=== PATIENT | female | born 1990 | race Caucasian/White ===

== ENCOUNTER 2021-04-03 07:18 | Inpatient (IN) | payer BC ==
[2021-04-03] MEDS ORDERED: Sodium Chloride 0.9% 10 ML Syringe FLUSH PRN (08:36)
[2021-04-03] MEDS ORDERED: Sodium Chloride 0.9% 2.5 ML Syringe FLUSH PRN (08:36)
[2021-04-03] MEDS ORDERED: Sodium Chloride 0.9% 10 ML SDV IV PRN (08:36)
[2021-04-03] MEDS ORDERED: Oxytocin/0.9 % Sodium Chloride 30 UNIT/500 ML BAG IV SCH (08:45)
[2021-04-03] MEDS: Lactated Ringers 1,000 ML IV SCH ×3 (08:48→18:10)
[2021-04-03] MEDS ORDERED: Morphine PF 10 MG/10 ML SDV ONE (11:45)
[2021-04-03] MEDS ORDERED: ceFAZolin 1 GM in Premix Bag 1 BAG IV ONE (11:45)
[2021-04-03] MEDS ORDERED: fentaNYL 100 MCG/2 ML SDV EPIDUR ONE (11:45)
[2021-04-03] MEDS ORDERED: Oxytocin 10 Units/1 ML SDV IM ONE (12:14)
[2021-04-03] MEDS ORDERED: Ketorolac 30 MG/ML SDV IVPUSH ONE (12:14)
[2021-04-03] MEDS ORDERED: Ondansetron 4 MG/2 ML SDV IVPUSH ONE (12:14)
[2021-04-03] MEDS ORDERED: diphenhydrAMINE 50 MG/ML SDV IVPUSH PRN ×2 (12:51→13:08)
[2021-04-03] MEDS ORDERED: Acetaminophen/oxyCODONE 325-5 MG Tab PO PRN ×2 (12:51→13:08)
[2021-04-03] MEDS ORDERED: Naloxone 0.4 MG/ML Syringe IVPUSH ONE (12:51)
[2021-04-03] MEDS ORDERED: Ondansetron 4 MG/2 ML SDV IVPUSH PRN ×2 (12:51→13:08)
[2021-04-03] MEDS ORDERED: ePHEDrine 50 MG/ML SDV IVPUSH PRN (12:51)
[2021-04-03] MEDS ORDERED: fentaNYL 100 MCG/2 ML SDV IVPUSH PRN (12:51)
[2021-04-03] MEDS ORDERED: Naloxone 0.4 MG/ML Syringe IVPUSH PRN (12:51)
[2021-04-03] MEDS ORDERED: Octyl 2-Cyanoacrylate 1 Tube TOP ONE ×2 (12:56→16:47)
[2021-04-03] MEDS ORDERED: Bisacodyl 10 MG Supp RECTAL PRN (13:08)
[2021-04-03] MEDS ORDERED: Oxytocin 10 Units/1 ML SDV IM PRN (13:08)
[2021-04-03] MEDS ORDERED: Lanolin 100% Cream 7 GM Tube TOP PRN (13:08)
[2021-04-03] MEDS ORDERED: Methylergonovine 0.2 MG/1 ML Amp IM PRN (13:08)
[2021-04-03] MEDS ORDERED: Tranexamic Acid 1,000 MG in Sodium Chloride 0.9% 100 ML IV PRN (13:08)
[2021-04-03] MEDS ORDERED: Misoprostol 200 MCG Tab RECTAL PRN (13:08)
[2021-04-03] MEDS ORDERED: Oxytocin/Lactated Ringers 30 UNIT/500 ML BAG IV SCH (13:08)
[2021-04-03] MEDS ORDERED: Promethazine 25 MG/ML SDV IM ONE (17:11)
[2021-04-03] MEDS: Ketorolac 30 MG/ML SDV IVPUSH SCH (18:41)
[2021-04-03] MEDS ORDERED: Simethicone 80 MG Tab.Chew PO SCH (21:00)
[2021-04-03] MEDS: Docusate Sodium 100 MG Cap PO SCH (22:26)
[2021-04-04] MEDS: Ketorolac 30 MG/ML SDV IVPUSH SCH ×3 (00:47→12:48)
[2021-04-04] MEDS: Lactated Ringers 1,000 ML IV SCH (02:41)
[2021-04-04] MEDS: Simethicone 80 MG Tab.Chew PO SCH ×3 (08:13→19:54)
[2021-04-04] MEDS: Docusate Sodium 100 MG Cap PO SCH ×2 (08:13→21:17)
--- NOTE | 2021-04-04 08:18 | PCM.PNPP ---
<Radha Mayo - Last Filed: 04/04/21 08:12> - General Info Date of Service: 04/04/21 Subjective Update: Resting comfortably in bed during rounds. Pain well controlled. Lochia decreasing. Ambulating without difficulty. Urinary catheter still in place. Passing flatus. Tolerating regular diet. , going well. Functional Status: Reports: Pain Controlled - Review of Systems General: Reports: No Symptoms HEENT: Reports: No Symptoms Pulmonary: Reports: No Symptoms Cardiovascular: Reports: No Symptoms Gastrointestinal: Reports: No Symptoms Genitourinary: Reports: No Symptoms Musculoskeletal: Reports: No Symptoms Skin: Reports: No Symptoms Neurological: Reports: No Symptoms Psychiatric: Reports: No Symptoms - General Info Date of Service: 04/04/21 - Patient Data Vital Signs - Most Recent: Last Vital Signs Temp 98.4 F 04/04/21 07:43 Pulse 78 04/04/21 07:43 Resp 18 04/04/21 07:43 BP 97/53 L 04/04/21 07:43 Pulse Ox 90 L 04/04/21 07:43 Weight - Most Recent: 73.482 kg I&O - Last 24 Hours: Intake & Output 04/03/21 04/04/21 04/04/21 22:59 06:59 14:59 Output Total 350 1200 Balance -350 -1200 Lab Results - Last 24 Hours: Laboratory Results - last 24 hr 04/03/21 04/03/21 04/03/21 Range/Units 08:05 09:08 09:08 WBC 9.67 (4.0-11.0) K/uL RBC 3.97 L (4.30-5.90) M/uL Hgb 12.3 (12.0-16.0) g/dL Hct 36.1 (36.0-46.0) % MCV 90.9 (80.0-98.0) fL MCH 31.0 (27.0-32.0) pg MCHC 34.1 (31.0-37.0) g/dL RDW Std Deviation 44.3 (28.0-62.0) fl RDW Coeff of Brenda 14 (11.0-15.0) % Plt Count 278 (150-400) K/uL MPV 9.90 (7.40-12.00) fL Nucleated RBC % 0.0 /100WBC Nucleated RBCs # 0 K/uL Membrane Rupture POSITIVE SARS-CoV-2 RNA (MELISSA) (NEGATIVE) Blood Type A POSITIVE Antibody Screen NEGATIVE 04/03/21 04/04/21 Range/Units 09:12 05:05 WBC (4.0-11.0) K/uL RBC (4.30-5.90) M/uL Hgb 10.8 L (12.0-16.0) g/dL Hct 32.1 L (36.0-46.0) % MCV (80.0-98.0) fL MCH (27.0-32.0) pg MCHC (31.0-37.0) g/dL RDW Std Deviation (28.0-62.0) fl RDW Coeff of Brenda (11.0-15.0) % Plt Count (150-400) K/uL MPV (7.40-12.00) fL Nucleated RBC % /100WBC Nucleated RBCs # K/uL Membrane Rupture SARS-CoV-2 RNA (MELISSA) NEGATIVE (NEGATIVE) Blood Type Antibody Screen Med Orders - Current: Current Medications Bisacodyl (Bisacodyl 10 Mg Supp) 10 mg RECTAL ONETIME PRN PRN Reason: Constipation Diphenhydramine HCl (Diphenhydramine 50 Mg/Ml Sdv) 25 mg IVPUSH Q6H PRN PRN Reason: Itching or Nausea Diphenhydramine HCl (Diphenhydramine 50 Mg/Ml Sdv) 25 mg IVPUSH Q2H PRN PRN Reason: Itching Docusate Sodium (Docusate Sodium 100 Mg Cap) 100 mg PO BID [facility] Last Admin: 04/03/21 22:26 Dose: 100 mg Documented by: Emollient Ointment (Lanolin 100% Cream 7 Gm Tube) 0 gm TOP ASDIRECTED PRN PRN Reason: Sore Nipples Ephedrine Sulfate (Ephedrine 50 Mg/Ml Sdv) 10 mg IVPUSH ASDIRECTED PRN PRN Reason: hypotension Fentanyl (Fentanyl 100 Mcg/2 Ml Sdv) 50 mcg IVPUSH Q1H PRN PRN Reason: Pain Lactated Ringer's (Ringers, Lactated) 1,000 mls @ 500 mls/hr IV BOLUS [facility] Last Admin: 04/03/21 10:11 Dose: 500 mls/hr Documented by: Oxytocin/Sodium Chloride (Oxytocin 30 Unit/500 Ml-Ns) 30 unit in 500 mls @ 250 mls/hr IV TITRATE [facility] Lactated Ringer's (Ringers, Lactated) 1,000 mls @ 125 mls/hr IV ASDIRECTED [facility] Last Admin: 04/04/21 02:41 Dose: 125 mls/hr Documented by: Oxytocin/Lactated Ringer's (Pitocin In Lr 30 Units/500 Ml) 30 unit in 500 mls @ 500 mls/hr IV TITRATE [facility] Tranexamic Acid 1,000 mg/ (Sodium Chloride) 110 mls @ 660 mls/hr IV ONETIME PRN PRN Reason: Bleeding Ibuprofen (Ibuprofen 800 Mg Tab) 800 mg PO Q8H PRN PRN Reason: mild pain or fever Ketorolac Tromethamine (Ketorolac 30 Mg/Ml Sdv) 30 mg IVPUSH Q6H [facility] Stop: 04/04/21 18:01 Last Admin: 04/04/21 06:35 Dose: 30 mg Documented by: Methylergonovine Maleate (Methylergonovine 0.2 Mg/1 Ml Amp) 0.2 mg IM ONETIME PRN PRN Reason: Excessive Vaginal Bleeding Misoprostol (Misoprostol 200 Mcg Tab) 1,000 mcg RECTAL ONETIME PRN PRN Reason: excessive bleeding Naloxone HCl (Naloxone 0.4 Mg/Ml Syringe) 0.1 mg IVPUSH ONETIME PRN PRN Reason: Respiratory Depression Stop: 04/04/21 15:26 Ondansetron HCl (Ondansetron 4 Mg/2 Ml Sdv) 4 mg IVPUSH Q4H PRN PRN Reason: Nausea/Vomiting Last Admin: 04/03/21 16:10 Dose: 4 mg Documented by: Ondansetron HCl (Ondansetron 4 Mg/2 Ml Sdv) 4 mg IVPUSH Q6H PRN PRN Reason: nausea Oxycodone/Acetaminophen (Acetaminophen/Oxycodone 325-5 Mg Tab) 1 tab PO Q4H PRN PRN Reason: Pain (severe 7-10) Oxycodone/Acetaminophen (Acetaminophen/Oxycodone 325-5 Mg Tab) 2 tab PO Q4H PRN PRN Reason: Pain (severe 7-10) Oxycodone/Acetaminophen (Acetaminophen/Oxycodone 325-5 Mg Tab) 2 tab PO ONETIME PRN PRN Reason: Pain (moderate 4-6) Oxytocin (Oxytocin 10 Units/1 Ml Sdv) 10 unit IM ASDIRECTED PRN PRN Reason: Excessive Vaginal Bleeding Simethicone (Simethicone 80 Mg Tab.Chew) 80 mg PO Q6H [facility] Sodium Chloride (Sodium Chloride 0.9% 10 Ml Syringe) 10 ml FLUSH ASDIRECTED PRN PRN Reason: Keep Vein Open Sodium Chloride (Sodium Chloride 0.9% 2.5 Ml Syringe) 2.5 ml FLUSH ASDIRECTED PRN PRN Reason: Keep Vein Open Sodium Chloride (Sodium Chloride 0.9% 10 Ml Sdv) 10 ml IV ASDIRECTED PRN PRN Reason: IV Use Discontinued Medications Fentanyl (Fentanyl 100 Mcg/2 Ml Sdv) 100 mcg EPIDUR .STK-MED ONE Stop: 04/03/21 11:46 Cefazolin Sodium/Dextrose 1 gm (/ Premix) 50 mls @ 100 mls/hr IV ONETIME ONE Stop: 04/03/21 12:14 Ketorolac Tromethamine (Ketorolac 30 Mg/Ml Sdv) 30 mg IVPUSH .STK-MED ONE Stop: 04/03/21 12:15 Morphine Sulfate (Morphine Pf 10 Mg/10 Ml Sdv) 10 mg .XX .STK-MED ONE Stop: 04/03/21 11:46 Naloxone HCl (Naloxone 0.4 Mg/Ml Syringe) 0.1 mg IVPUSH ONETIME ONE Stop: 04/03/21 12:52 Octyl Cyanoacrylate (Octyl 2-Cyanoacrylate 1 Tube) 1 applic TOP .STK-MED ONE Stop: 04/03/21 12:57 Ondansetron HCl (Ondansetron 4 Mg/2 Ml Sdv) 4 mg IVPUSH .STK-MED ONE Stop: 04/03/21 12:15 Oxytocin (Oxytocin 10 Units/1 Ml Sdv) 30 unit IM .STK-MED ONE Stop: 04/03/21 12:15 Promethazine HCl (Promethazine 25 Mg/Ml Sdv) 12.5 mg IM ONETIME ONE Stop: 04/03/21 17:12 Last Admin: 04/03/21 17:32 Dose: 12.5 mg Documented by: Simethicone (Simethicone 80 Mg Tab.Chew) 180 mg PO BID [facility] Last Admin: 04/03/21 22:26 Dose: 180 mg Documented by: - Interaction Disposition, : [place] in Room with Family Infant Interaction: Holding Feeding: Breastfed Infant; Nursed Well Support Person: - Recovery Exam Fundal Tone: Firm Fundal Level: 2 Fingerbreadths Below Umbilicus Fundal Placement: Midline Lochia Amount: Scant Lochia Color: Rubra/Red Perineum Description: Intact, Minimal Bruising/Swelling Bladder Status: Indwelling Catheter in Place Urinary Elimination: Indwelling Catheter - Exam General: Alert, Oriented, Cooperative, No Acute Distress HEENT: Pupils Equal, Pupils Reactive Neck: Supple Lungs: Clear to Auscultation, Normal Respiratory Effort Cardiovascular: Regular Rate, Regular Rhythm GI/Abdominal Exam: Normal Bowel Sounds, Soft, Non-Tender, No Distention Extremities: Normal Inspection, Normal Range of Motion, Non-Tender, Pedal Edema (Trace) Skin: Warm, Dry, Intact Wound/Incisions: Healing Well, Dressing Dry and Intact Neurological: No New Focal Deficit Psy/Mental Status: Alert, Normal Affect, Normal Mood - Problem List Review Problem List Initiated/Reviewed/Updated: Yes - Assessment Assessment:: Lissett Quick is a 30 year old female POD1 s/p repeat LTCS - Plan Plan:: Routine cares * A positive, GBS negative, Rubella immune * PO pain medication * Encourage ambulation and fluid intake * Continue to monitor bleeding and symptoms * Remove catheter today * Plan for shower and dressing removal * Regular diet as tolerated Disposition: Stable. Plan for discharge tomorrow pending and patient status <Autumn Ng - Last Filed: 04/04/21 08:41> - Patient Data Vital Signs - Most Recent: Last Vital Signs Temp 36.9 C 04/04/21 07:43 Pulse 78 04/04/21 07:43 Resp 18 04/04/21 07:43 BP 97/53 L 04/04/21 07:43 Pulse Ox 90 L 04/04/21 07:43 I&O - Last 24 Hours: Intake & Output 04/03/21 04/04/21 04/04/21 22:59 06:59 14:59 Output Total 350 1200 Balance -350 -1200 Lab Results - Last 24 Hours: Laboratory Results - last 24 hr 04/03/21 04/03/21 04/03/21 Range/Units 09:08 09:08 09:12 WBC 9.67 (4.0-11.0) K/uL RBC 3.97 L (4.30-5.90) M/uL Hgb 12.3 (12.0-16.0) g/dL Hct 36.1 (36.0-46.0) % MCV 90.9 (80.0-98.0) fL MCH 31.0 (27.0-32.0) pg MCHC 34.1 (31.0-37.0) g/dL RDW Std Deviation 44.3 (28.0-62.0) fl RDW Coeff of Brenda 14 (11.0-15.0) % Plt Count 278 (150-400) K/uL MPV 9.90 (7.40-12.00) fL Nucleated RBC % 0.0 /100WBC Nucleated RBCs # 0 K/uL SARS-CoV-2 RNA (MELISSA) NEGATIVE (NEGATIVE) Blood Type A POSITIVE Antibody Screen NEGATIVE 04/04/21 Range/Units 05:05 WBC (4.0-11.0) K/uL RBC (4.30-5.90) M/uL Hgb 10.8 L (12.0-16.0) g/dL Hct 32.1 L (36.0-46.0) % MCV (80.0-98.0) fL MCH (27.0-32.0) pg MCHC (31.0-37.0) g/dL RDW Std Deviation (28.0-62.0) fl RDW Coeff of Brenda (11.0-15.0) % Plt Count (150-400) K/uL MPV (7.40-12.00) fL Nucleated RBC % /100WBC Nucleated RBCs # K/uL SARS-CoV-2 RNA (MELISSA) (NEGATIVE) Blood Type Antibody Screen Med Orders - Current: Current Medications Bisacodyl (Bisacodyl 10 Mg Supp) 10 mg RECTAL ONETIME PRN PRN Reason: Constipation Diphenhydramine HCl (Diphenhydramine 50 Mg/Ml Sdv) 25 mg IVPUSH Q6H PRN PRN Reason: Itching or Nausea Diphenhydramine HCl (Diphenhydramine 50 Mg/Ml Sdv) 25 mg IVPUSH Q2H PRN PRN Reason: Itching Docusate Sodium (Docusate Sodium 100 Mg Cap) 100 mg PO BID [facility] Last Admin: 04/04/21 08:13 Dose: 100 mg Documented by: Emollient Ointment (Lanolin 100% Cream 7 Gm Tube) 0 gm TOP ASDIRECTED PRN PRN Reason: Sore Nipples Ephedrine Sulfate (Ephedrine 50 Mg/Ml Sdv) 10 mg IVPUSH ASDIRECTED PRN PRN Reason: hypotension Fentanyl (Fentanyl 100 Mcg/2 Ml Sdv) 50 mcg IVPUSH Q1H PRN PRN Reason: Pain Lactated Ringer's (Ringers, Lactated) 1,000 mls @ 500 mls/hr IV BOLUS [facility] Last Admin: 04/03/21 10:11 Dose: 500 mls/hr Documented by: Oxytocin/Sodium Chloride (Oxytocin 30 Unit/500 Ml-Ns) 30 unit in 500 mls @ 250 mls/hr IV TITRATE [facility] Lactated Ringer's (Ringers, Lactated) 1,000 mls @ 125 mls/hr IV ASDIRECTED [facility] Last Admin: 04/04/21 02:41 Dose: 125 mls/hr Documented by: Oxytocin/Lactated Ringer's (Pitocin In Lr 30 Units/500 Ml) 30 unit in 500 mls @ 500 mls/hr IV TITRATE [facility] Tranexamic Acid 1,000 mg/ (Sodium Chloride) 110 mls @ 660 mls/hr IV ONETIME PRN PRN Reason: Bleeding Ibuprofen (Ibuprofen 800 Mg Tab) 800 mg PO Q8H PRN PRN Reason: mild pain or fever Ketorolac Tromethamine (Ketorolac 30 Mg/Ml Sdv) 30 mg IVPUSH Q6H [facility] Stop: 04/04/21 18:01 Last Admin: 04/04/21 06:35 Dose: 30 mg Documented by: Methylergonovine Maleate (Methylergonovine 0.2 Mg/1 Ml Amp) 0.2 mg IM ONETIME PRN PRN Reason: Excessive Vaginal Bleeding Misoprostol (Misoprostol 200 Mcg Tab) 1,000 mcg RECTAL ONETIME PRN PRN Reason: excessive bleeding Naloxone HCl (Naloxone 0.4 Mg/Ml Syringe) 0.1 mg IVPUSH ONETIME PRN PRN Reason: Respiratory Depression Stop: 04/04/21 15:26 Ondansetron HCl (Ondansetron 4 Mg/2 Ml Sdv) 4 mg IVPUSH Q4H PRN PRN Reason: Nausea/Vomiting Last Admin: 04/03/21 16:10 Dose: 4 mg Documented by: Ondansetron HCl (Ondansetron 4 Mg/2 Ml Sdv) 4 mg IVPUSH Q6H PRN PRN Reason: nausea Oxycodone/Acetaminophen (Acetaminophen/Oxycodone 325-5 Mg Tab) 1 tab PO Q4H PRN PRN Reason: Pain (severe 7-10) Oxycodone/Acetaminophen (Acetaminophen/Oxycodone 325-5 Mg Tab) 2 tab PO Q4H PRN PRN Reason: Pain (severe 7-10) Oxycodone/Acetaminophen (Acetaminophen/Oxycodone 325-5 Mg Tab) 2 tab PO ONETIME PRN PRN Reason: Pain (moderate 4-6) Oxytocin (Oxytocin 10 Units/1 Ml Sdv) 10 unit IM ASDIRECTED PRN PRN Reason: Excessive Vaginal Bleeding Simethicone (Simethicone 80 Mg Tab.Chew) 80 mg PO Q6H [facility] Last Admin: 04/04/21 08:13 Dose: 80 mg Documented by: Sodium Chloride (Sodium Chloride 0.9% 10 Ml Syringe) 10 ml FLUSH ASDIRECTED PRN PRN Reason: Keep Vein Open Sodium Chloride (Sodium Chloride 0.9% 2.5 Ml Syringe) 2.5 ml FLUSH ASDIRECTED PRN PRN Reason: Keep Vein Open Sodium Chloride (Sodium Chloride 0.9% 10 Ml Sdv) 10 ml IV ASDIRECTED PRN PRN Reason: IV Use Discontinued Medications Fentanyl (Fentanyl 100 Mcg/2 Ml Sdv) 100 mcg EPIDUR .STK-MED ONE Stop: 04/03/21 11:46 Cefazolin Sodium/Dextrose 1 gm (/ Premix) 50 mls @ 100 mls/hr IV ONETIME ONE Stop: 04/03/21 12:14 Ketorolac Tromethamine (Ketorolac 30 Mg/Ml Sdv) 30 mg IVPUSH .STK-MED ONE Stop: 04/03/21 12:15 Morphine Sulfate (Morphine Pf 10 Mg/10 Ml Sdv) 10 mg .XX .STK-MED ONE Stop: 04/03/21 11:46 Naloxone HCl (Naloxone 0.4 Mg/Ml Syringe) 0.1 mg IVPUSH ONETIME ONE Stop: 04/03/21 12:52 Octyl Cyanoacrylate (Octyl 2-Cyanoacrylate 1 Tube) 1 applic TOP .STK-MED ONE Stop: 04/03/21 12:57 Ondansetron HCl (Ondansetron 4 Mg/2 Ml Sdv) 4 mg IVPUSH .STK-MED ONE Stop: 04/03/21 12:15 Oxytocin (Oxytocin 10 Units/1 Ml Sdv) 30 unit IM .STK-MED ONE Stop: 04/03/21 12:15 Promethazine HCl (Promethazine 25 Mg/Ml Sdv) 12.5 mg IM ONETIME ONE Stop: 04/03/21 17:12 Last Admin: 04/03/21 17:32 Dose: 12.5 mg Documented by: Simethicone (Simethicone 80 Mg Tab.Chew) 180 mg PO BID [facility] Last Admin: 04/03/21 22:26 Dose: 180 mg Documented by: - My Orders Last 24 Hours: My Active Orders 04/03/21 08:36 Sodium Chloride 0.9% [Normal Saline] 10 ml IV ASDIRECTED PRN Sodium Chloride 0.9% [Saline Flush] 10 ml FLUSH ASDIRECTED PRN Sodium Chloride 0.9% [Saline Flush] 2.5 ml FLUSH ASDIRECTED PRN 04/03/21 08:37 Patient Status [ADT] Routine 04/03/21 08:45 Lactated Ringers [Ringers, Lactated] 1,000 ml IV BOLUS Oxytocin/0.9 % Sodium Chloride [Oxytocin 30 Unit/500 ML-NS] 30 unit in 500 ml IV TITRATE 04/03/21 09:08 RPR (SYPHILIS SERO) W/ RFLX [REF] Routine 04/03/21 13:08 Patient Status [ADT] Routine Ambulate [RC] PER UNIT ROUTINE Antiembolic Devices [RC] PER UNIT ROUTINE Communication Order [RC] PER UNIT ROUTINE Communication Order [RC] PER UNIT ROUTINE Communication Order [RC] Per Unit Routine May Shower [RC] ASDIRECTED Notify Provider Intake and Out [RC] ASDIRECTED Notify Provider Vital Signs [RC] ASDIRECTED RT Incentive Spirometry [RC] Q2HWA Acetaminophen/oxyCODONE [Percocet 325-5 MG] 1 tab PO Q4H PRN Acetaminophen/oxyCODONE [Percocet 325-5 MG] 2 tab PO Q4H PRN Lactated Ringers [Ringers, Lactated] 1,000 ml IV ASDIRECTED Lanolin [Lansinoh HPA] See Dose Instructions TOP ASDIRECTED PRN Methylergonovine [Methergine] 0.2 mg IM ONETIME PRN Ondansetron [Zofran] 4 mg IVPUSH Q4H PRN Oxytocin [Pitocin] 10 unit IM ASDIRECTED PRN Oxytocin/Lactated Ringers [Pitocin in LR 30 Units/500 ML] 30 unit in 500 ml IV TITRATE Tranexamic Acid [Cyklokapron] 1,000 mg Sodium Chloride 0.9% [Normal Saline] 100 ml IV ONETIME bisacodyL [Dulcolax] 10 mg RECTAL ONETIME PRN diphenhydrAMINE [Benadryl] 25 mg IVPUSH Q6H PRN miSOPROStoL [Cytotec] 1,000 mcg RECTAL ONETIME PRN Assess Lochia [WOMSER] Per Unit Routine Assess Uterine Involution [WOMSER] Per Unit Routine Breast Pump [WOMSER] Per Unit Routine Peripheral IV Discontinue [OM.PC] Routine Sequential Compression Device [OM.PC] Per Unit Routine 04/03/21 15:07 Resuscitation Status Routine 04/03/21 18:00 Ketorolac [Toradol] 30 mg IVPUSH Q6H 04/03/21 21:00 Docusate Sodium [Colace] 100 mg PO BID 04/05/21 00:00 Ibuprofen [Motrin] 800 mg PO Q8H PRN - Plan Plan:: Patient seen and examined--agree with above.
[2021-04-04] MEDS: Acetaminophen/oxyCODONE 325-5 MG Tab PO PRN (19:53)
[2021-04-05] MEDS ORDERED: Ibuprofen 800 MG Tab PO PRN
[2021-04-05] MEDS: Acetaminophen/oxyCODONE 325-5 MG Tab PO PRN ×2 (01:37→09:20)
[2021-04-05] MEDS: Simethicone 80 MG Tab.Chew PO SCH ×2 (01:39→09:20)
--- NOTE | 2021-04-05 07:38 | PCM.PNPP ---
- General Info Date of Service: 04/05/21 Functional Status: Reports: Pain Controlled, Tolerating Diet, Ambulating, Urinating - Review of Systems General: Denies: Fever, Weakness Pulmonary: Denies: Shortness of Breath Cardiovascular: Denies: Chest Pain, Palpitations, Lightheadedness Gastrointestinal: Denies: Abdominal Pain, Nausea, Vomiting Genitourinary: Denies: Flank Pain Musculoskeletal: Reports: No Symptoms Skin: Reports: No Symptoms Neurological: Reports: No Symptoms Psychiatric: Reports: No Symptoms - General Info Date of Service: 04/05/21 - Patient Data Vital Signs - Most Recent: Last Vital Signs Temp 36.4 C 04/05/21 04:00 Pulse 77 04/05/21 04:00 Resp 18 04/05/21 04:00 BP 124/65 04/05/21 04:00 Pulse Ox 93 L 04/05/21 04:00 Weight - Most Recent: 73.482 kg I&O - Last 24 Hours: Intake & Output 04/04/21 04/05/21 04/05/21 22:59 06:59 14:59 Output Total 600 Balance -600 Lab Results - Last 24 Hours: Laboratory Results - last 24 hr 04/03/21 Range/Units 09:08 RPR Non-Reac (Non-Reac) Med Orders - Current: Current Medications Bisacodyl (Bisacodyl 10 Mg Supp) 10 mg RECTAL ONETIME PRN PRN Reason: Constipation Diphenhydramine HCl (Diphenhydramine 50 Mg/Ml Sdv) 25 mg IVPUSH Q6H PRN PRN Reason: Itching or Nausea Diphenhydramine HCl (Diphenhydramine 50 Mg/Ml Sdv) 25 mg IVPUSH Q2H PRN PRN Reason: Itching Docusate Sodium (Docusate Sodium 100 Mg Cap) 100 mg PO BID [facility] Last Admin: 04/04/21 21:17 Dose: 100 mg Documented by: Emollient Ointment (Lanolin 100% Cream 7 Gm Tube) 0 gm TOP ASDIRECTED PRN PRN Reason: Sore Nipples Ephedrine Sulfate (Ephedrine 50 Mg/Ml Sdv) 10 mg IVPUSH ASDIRECTED PRN PRN Reason: hypotension Fentanyl (Fentanyl 100 Mcg/2 Ml Sdv) 50 mcg IVPUSH Q1H PRN PRN Reason: Pain Lactated Ringer's (Ringers, Lactated) 1,000 mls @ 500 mls/hr IV BOLUS [facility] Last Admin: 04/03/21 10:11 Dose: 500 mls/hr Documented by: Oxytocin/Sodium Chloride (Oxytocin 30 Unit/500 Ml-Ns) 30 unit in 500 mls @ 250 mls/hr IV TITRATE [facility] Lactated Ringer's (Ringers, Lactated) 1,000 mls @ 125 mls/hr IV ASDIRECTED [facility] Last Admin: 04/04/21 02:41 Dose: 125 mls/hr Documented by: Oxytocin/Lactated Ringer's (Pitocin In Lr 30 Units/500 Ml) 30 unit in 500 mls @ 500 mls/hr IV TITRATE [facility] Tranexamic Acid 1,000 mg/ (Sodium Chloride) 110 mls @ 660 mls/hr IV ONETIME PRN PRN Reason: Bleeding Ibuprofen (Ibuprofen 800 Mg Tab) 800 mg PO Q8H PRN PRN Reason: mild pain or fever Methylergonovine Maleate (Methylergonovine 0.2 Mg/1 Ml Amp) 0.2 mg IM ONETIME PRN PRN Reason: Excessive Vaginal Bleeding Misoprostol (Misoprostol 200 Mcg Tab) 1,000 mcg RECTAL ONETIME PRN PRN Reason: excessive bleeding Ondansetron HCl (Ondansetron 4 Mg/2 Ml Sdv) 4 mg IVPUSH Q4H PRN PRN Reason: Nausea/Vomiting Last Admin: 04/03/21 16:10 Dose: 4 mg Documented by: Ondansetron HCl (Ondansetron 4 Mg/2 Ml Sdv) 4 mg IVPUSH Q6H PRN PRN Reason: nausea Oxycodone/Acetaminophen (Acetaminophen/Oxycodone 325-5 Mg Tab) 1 tab PO Q4H PRN PRN Reason: Pain (severe 7-10) Last Admin: 04/05/21 01:37 Dose: 1 tab Documented by: Oxycodone/Acetaminophen (Acetaminophen/Oxycodone 325-5 Mg Tab) 2 tab PO Q4H PRN PRN Reason: Pain (severe 7-10) Oxycodone/Acetaminophen (Acetaminophen/Oxycodone 325-5 Mg Tab) 2 tab PO ONETIME PRN PRN Reason: Pain (moderate 4-6) Oxytocin (Oxytocin 10 Units/1 Ml Sdv) 10 unit IM ASDIRECTED PRN PRN Reason: Excessive Vaginal Bleeding Simethicone (Simethicone 80 Mg Tab.Chew) 80 mg PO Q6H [facility] Last Admin: 04/05/21 01:39 Dose: 80 mg Documented by: Sodium Chloride (Sodium Chloride 0.9% 10 Ml Syringe) 10 ml FLUSH ASDIRECTED PRN PRN Reason: Keep Vein Open Sodium Chloride (Sodium Chloride 0.9% 2.5 Ml Syringe) 2.5 ml FLUSH ASDIRECTED PRN PRN Reason: Keep Vein Open Sodium Chloride (Sodium Chloride 0.9% 10 Ml Sdv) 10 ml IV ASDIRECTED PRN PRN Reason: IV Use Discontinued Medications Fentanyl (Fentanyl 100 Mcg/2 Ml Sdv) 100 mcg EPIDUR .STK-MED ONE Stop: 04/03/21 11:46 Cefazolin Sodium/Dextrose 1 gm (/ Premix) 50 mls @ 100 mls/hr IV ONETIME ONE Stop: 04/03/21 12:14 Ketorolac Tromethamine (Ketorolac 30 Mg/Ml Sdv) 30 mg IVPUSH Q6H [facility] Stop: 04/04/21 18:01 Last Admin: 04/04/21 12:48 Dose: 30 mg Documented by: Ketorolac Tromethamine (Ketorolac 30 Mg/Ml Sdv) 30 mg IVPUSH .STK-MED ONE Stop: 04/03/21 12:15 Morphine Sulfate (Morphine Pf 10 Mg/10 Ml Sdv) 10 mg .XX .STK-MED ONE Stop: 04/03/21 11:46 Naloxone HCl (Naloxone 0.4 Mg/Ml Syringe) 0.1 mg IVPUSH ONETIME ONE Stop: 04/03/21 12:52 Naloxone HCl (Naloxone 0.4 Mg/Ml Syringe) 0.1 mg IVPUSH ONETIME PRN PRN Reason: Respiratory Depression Stop: 04/04/21 15:26 Octyl Cyanoacrylate (Octyl 2-Cyanoacrylate 1 Tube) 1 applic TOP .STK-MED ONE Stop: 04/03/21 12:57 Ondansetron HCl (Ondansetron 4 Mg/2 Ml Sdv) 4 mg IVPUSH .STK-MED ONE Stop: 04/03/21 12:15 Oxytocin (Oxytocin 10 Units/1 Ml Sdv) 30 unit IM .STK-MED ONE Stop: 04/03/21 12:15 Promethazine HCl (Promethazine 25 Mg/Ml Sdv) 12.5 mg IM ONETIME ONE Stop: 04/03/21 17:12 Last Admin: 04/03/21 17:32 Dose: 12.5 mg Documented by: Simethicone (Simethicone 80 Mg Tab.Chew) 180 mg PO BID [facility] Last Admin: 04/03/21 22:26 Dose: 180 mg Documented by: - Interaction Disposition, : in Room with Family Interaction: Holding Feeding: Breastfed Infant; Nursed Well Support Person: - Recovery Exam Fundal Tone: Firm Fundal Level: 1 Fingerbreadths Below Umbilicus Fundal Placement: Midline Lochia Amount: Scant Lochia Color: Rubra/Red Perineum Description: Intact, Minimal Bruising/Swelling Episiotomy/Laceration: None Bladder Status: Voiding Urinary Elimination: Other (see below) Other Urinary Elimination, : due to void - Exam General: Alert, Oriented Lungs: Normal Respiratory Effort Cardiovascular: Regular Rate, Regular Rhythm GI/Abdominal Exam: Normal Bowel Sounds, Soft Extremities: Pedal Edema (trace). No: Roxana's Sign Skin: Warm, Dry, Intact Wound/Incisions: Healing Well, No Drainage. No: Erythema Neurological: No New Focal Deficit Psy/Mental Status: Alert, Normal Affect, Normal Mood - Problem List & Annotations (1) S/P repeat low transverse SNOMED Code(s): 019963420, [id number], [id number], [id number], 502272958 Code(s): Z98.891 - HISTORY OF UTERINE SCAR FROM PREVIOUS SURGERY Status: Acute Current Visit: Yes - Problem List Review Problem List Initiated/Reviewed/Updated: Yes - My Orders Last 24 Hours: My Active Orders 04/05/21 00:00 Ibuprofen [Motrin] 800 mg PO Q8H PRN - Assessment Assessment:: Lissett Quick is a 30 year old female POD1 POD 2 status post repeat c section - Plan Plan:: Patient doing well overall--VS are stable. She would like to go home today. Discharge instructions reviewed. Follow up at [facility] 2 and 6 weeks. Discharge to home today.
[2021-04-05] MEDS: Docusate Sodium 100 MG Cap PO SCH (09:20)
--- NOTE | 2021-04-05 10:02 | PCM.PREANE ---
Preanesthetic Assessment - Anesthesia/Transfusion/Family Hx Anesthesia History: Prior Anesthesia Without Reaction Family History of Anesthesia Reaction: No Transfusion History: No Prior Transfusion(s) - Physical Assessment NPO Status Date: 04/03/21 NPO Status Time: 06:00 ASA Class: 2 Airway Class: Mallampati = 3 - Allergies Allergies/Adverse Reactions: Allergies Allergy/AdvReac Type Severity Reaction Status Date / Time No Known Allergies Allergy Verified 04/03/21 08:14 - Blood Blood Available: Yes Product(s) Available: PRBC - Anesthesia Plan Pre-Op Medication Ordered: None - Acknowledgements Anesthesia Type Planned: Spinal Pt an Appropriate Candidate for the Planned Anesthesia: Yes Alternatives and Risks of Anesthesia Discussed w Pt/Guardian: Yes Pt/Guardian Understands and Agrees with Anesthesia Plan: Yes 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: , Other (See Below) Other OB/BYN History: 2 previous ceserean sections - Infectious Disease History Infectious Disease History: Reports: Chicken Pox, Shingles - HOME MEDS Home Medications: Home Meds Folic Acid 4 mg PO DAILY 04/03/21 [History] Glycerin/Polycarbophl/Carbomer [Rephresh Vaginal Applicator] 1 gm PO DAILY 04/03/21 [History] Iron 1 tab PO DAILY 04/03/21 [History] Pnv No.95/Ferrous Fum/Folic AC [ Vitamin Tablet] 1 tab PO DAILY 04/03/21 [History] - CURRENT (IN HOUSE) MEDS Current Meds: Current Medications Discontinued Medications Fentanyl (Fentanyl 100 Mcg/2 Ml Sdv) Confirm Administered Dose 100 mcg .ROUTE .STK-MED ONE Stop: 04/03/21 11:46 Cefazolin Sodium/Dextrose (Ancef 2 Gm/50 Ml) Confirm Administered Dose 50 mls @ as directed .ROUTE .STK-MED ONE Stop: 04/03/21 11:53 Morphine Sulfate (Morphine Pf 10 Mg/10 Ml Sdv) Confirm Administered Dose 10 mg .ROUTE .STK-MED ONE Stop: 04/03/21 11:46
--- NOTE | 2021-04-05 10:12 | PCM.OPNOTE ---
- General Post-Op/Procedure Note Date of Surgery/Procedure: 04/03/21 Operative Procedure(s): Repeast low transverse section Pre Op Diagnosis: 1. Single intrauterine at 36w6d. 3. PROM. 2. Repeat low transverse section Post-Op Diagnosis: 1. Single intrauterine at 36w6d. 3. PROM. 2. Repeat low transverse section Anesthesia Technique: Spinal Primary Surgeon: Autumn gN Anesthesia Provider: Fidencio Parmar Director Of Government Sales: Radha Mayo Fluid Replacement, Intraop: 1,000 Output, Urine Amount: 50 (Clear) EBL in mLs: 600 Complications: None known Condition: Good
[2021-04-05 11:53] VITALS: BP 118/75; PULSE 80
--- NOTE | 2021-04-06 01:41 | OR ---
SURGEON: Atuumn Ng M.D. DATE OF PROCEDURE: 04/03/2021 PREOPERATIVE DIAGNOSES: 1. 36-6/7-week intrauterine . 2. Premature rupture of membranes. POSTOPERATIVE DIAGNOSES: 1. 36-6/7-week intrauterine . 2. Premature rupture of membranes. PROCEDURE: Repeat low-transverse section. ANESTHESIA: Spinal. ESTIMATED BLOOD LOSS: 600 mL. FLUIDS: 1000 mL crystalloid in the OR. COMPLICATION: None known. FINDINGS: Viable male, Apgars scores 9 at 1 minute and 9 at 5 minutes, weight 6 pounds 11 ounces. Delivery of an intact placenta with a 3-vessel cord. DISPOSITION: Infant to nursery, mom in PACU, stable. PROCEDURE DETAILS: Lissett is a 30-year-old female, who presents today with leakage of fluid since approximately 3 a.m. It is clear. She is group B beta strep negative. On evaluation, she is found to have spontaneous rupture of membranes. AmniSure is positive. Therefore, the patient was admitted. Routine labs were drawn. IV hydration was initiated. She was evaluated by Anesthesia. Risks of a repeat had been discussed with her, including infection; bleeding; possible trauma to the surrounding bowel, bladder, or ureters; in case of excessive blood loss, need for blood product transfusion; in rare lifesaving circumstances, risk for hysterectomy; risk for thromboembolic event; and risk of anesthesia. She voiced her understanding. Proper consent was obtained. The patient was taken to the operating room, where she underwent spinal anesthetic, was placed in dorsal supine position with a leftward tilt, SCDs to the lower extremities, Barro[place] to gravity, and was prepped and draped in the usual sterile fashion. Anesthesia was tested and found to be adequate. The previous Pfannenstiel scar was now excised. Subcutaneous tissue was incised down to the level of the rectus fascia, which was incised in the midline and lateralized on either side sharply and bluntly. The superior aspect of the fascia was tented upwards and dissected sharply and bluntly away from underlying muscles formed into the inferior aspect of the fascia. Rectus muscle was in the midline. Peritoneum was entered. Rectus muscles and peritoneum were now lateralized bluntly. Uterine position and position were palpated. A self-retaining retractor was gently placed. Uterovesical reflection was visualized. Bladder flap was created sharply and bluntly. Bladder was mobilized away from the lower uterine segment. A low-transverse hysterotomy was now performed. Uterine cavity was entered with the blunt end of the scalpel. Hysterotomy was lateralized bluntly. Amniotomy was performed. Head was flexed and delivered, and fundal pressure was applied. Head was delivered, followed by anterior shoulder, posterior shoulder, and the remainder of the body without difficulty. 's oropharynx and nares were bulb suctioned. was crying and vigorous. After a delay, cord was clamped x2 and cut. Infant was handed off to the attending sheep farmer. Cord arterial, cord venous, and cord blood samplings were obtained. The placenta was now delivered. Uterine cavity was cleared of all clot and debris. Hysterotomy was repaired using 0 Vicryl in a continuous running locked fashion, followed by a re-imbricating layer. Area of oozing in the right lateral aspect was reapproximated with [id number] suture. Hemostasis was thereafter evident. Posterior aspect of the uterus was inspected. No defects or hematomas were found be forming. Region was well irrigated and suction dried. Uterus was returned to the abdominal cavity. Colonic gutters were cleared of all clot and debris, well irrigated, and suction dried. Uterine hysterotomy was again inspected and found to be hemostatic. Self-retaining retractor was now removed. Bladder blade was placed. Hysterotomy was once again inspected and found to be hemostatic. Bladder blade was removed. Rectus muscles and peritoneum were now reapproximated using 0 Vicryl with inverted mattress suture technique. Anterior aspect of the muscle and the posterior aspect of the fascia were inspected. Any areas of oozing were cauterized. Rectus fascia was reapproximated using 0 Vicryl beginning laterally on either side and meeting in the midline. Subcutaneous tissue was well irrigated and suction dried. Any areas of oozing were cauterized. Skin edges were now reapproximated using 3-0 Vicryl in a subcuticular fashion, followed by Dermabond. Sponge, instrument, and needle counts were correct x2. The patient tolerated the procedure well overall. She will go to the PACU in stable condition. BRIAN / HUDSON /[id number]
== END 2021-04-05 13:00 | disposition home or self-care (01) | DRG 540 ==
LOC: MW.OBCHECK 07:18 → MW.OB 08:37
PROVIDERS: ADMIT Obstetrics & Gynecology; ATTEND Obstetrics & Gynecology
PROC: 10D00Z1 Extraction of Products of Conception, Low, Open Approach (ICD-10-PCS; principal; 2021-04-03)
DX: O34.211 Maternal care for low transverse scar from previous cesarean delivery (principal); O42.013 Preterm premature rupture of membranes, onset of labor within 24 hours of rupture, third trimester; Z20.822 Contact with and (suspected) exposure to COVID-19; Z3A.36 36 weeks gestation of pregnancy; Z37.0 Single live birth
CPT/HCPCS: 36415; 59025; 82803; 84112; 85014; 85018; 85027; 86592; 86850; 86900; 86901; A9270-GY; J0690; J1885; J2270; J2405; J2550; J2590; J3010; J7120; U0002